=== PATIENT | male | born 1965 | race Caucasian/White ===

== ENCOUNTER 2021-06-07 05:50 | Emergency (ER) | payer OTHER ==
[2021-06-07 07:07] LABS: CORONAVIRUS 2019 SARS-COV-2 NEGATIVE (NEGATIVE); INFLUENZA A NAA NEGATIVE (NEGATIVE)
[2021-06-07 07:38] LABS: BASOPHIL 0.9 % (0-2); EOSINOPHIL 4.4 % (0-5); HCT 39.7 % (42.0-52.0); HGB 13.2 g/dl (13.2-18.0); MCH 33.2 pg (25.0-31.0); MCHC 33.2 g/dL (32.0-36.0); MONOCYTE 9.7 % (0-12); MPV 12.1 fL (6.0-9.5); NEUTROPHIL 66.7 % (41-80); NRBC 0; PLT 202 K/uL (150-400); RBC 3.97 M/uL (4.70-6.00); RDW 13.6 % (11.5-14.0); WBC 9.8 K/uL (4.0-10.5)
[2021-06-07 07:57] LABS: ALBUMIN 4.1 g/dL (3.4-5.0); BILIRUBIN - TOTAL 0.4 mg/dL (0.2-1.0); BUN/CREAT RATIO (CALC) 14.1 RATIO; CREATININE 0.99 mg/dL (0.67-1.17); GLOBULIN (CALCULATION) 2.1 g/dL; TOTAL PROTEIN 6.2 g/dL (6.4-8.2)
[2021-06-07] MEDS ORDERED: ZPAK PO (09:30)
[2021-06-07] MEDS ORDERED: CEFDINIR300 MG PO (09:30)
== END 2021-06-07 10:00 | disposition home or self-care (01) ==
LOC: FER 05:50
PROVIDERS: Emergency Medicine Emergency Medical Services
DX: J44.9 Chronic obstructive pulmonary disease, unspecified (principal); J18.9 Pneumonia, unspecified organism; F17.210 Nicotine dependence, cigarettes, uncomplicated; Z88.6 Allergy status to analgesic agent; Z88.8 Allergy status to other drugs, medicaments and biological substances; Z20.822 Contact with and (suspected) exposure to COVID-19
CPT/HCPCS: 36415; 71046; 80053; 84145; 85025; U0002